=== PATIENT | female | born 1995 | race Caucasian/White ===

== ENCOUNTER 2018-11-06 16:58 | Outpatient (CLI) | payer OTHER ==
[~2018-11-06] VITALS: Ht 162.6 cm; Wt 74.6 kg
[2018-11-06 17:30] VITALS: BP 135/89
[2018-11-06] MEDS ORDERED: PRENTAB9 PO (18:22)
--- NOTE | 2018-11-06 18:44 | IPNPDOC ---
Text Note Date of Service The patient was seen on 11/06/18. NOTE 23 yo at apparently 40+3 weeks gestation (patient hasn't received any care at [facility] and no records are available) presents to L&D with the complaint of intermittent contractions, back pain, and pelvic pressure. She denies any vaginal bleeding or leakage of fluid. She endorses excellent movement. 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 She has been receiving care in [place]. She has been unable to get an appointment on [facility] yet. She reports her is uncomplicated. Chaperoned by SAIRA Stokess - VSS, afebrile, normotensive, non tachycardic General - AAOX3, sitting up in bed, NAD Abdomen - Gravid uterus appropriate size for gestational age. No fundal tenderness. Cervix - 1/thick/high, posterior FHR tracing - Moderate variability, +accels, no decels. Reactive NST. Sporadic contractions on toco. Patient not in active labor. Reassuring status. Benign exam. Recommended she call the [facility] at [facility] on Wednesday to make an appointment. If no appointments are available, I will see her on Wednesday and arrange an IOL. We reviewed discharge precautions. All patient questions answered. DO JEFF Harris Fishbone, I+O VSSasha, I+O Vital Signs Date Time Temp Pulse Resp B/P (MAP) Pulse Ox O2 Delivery O2 Flow Rate FiO2 11/06/18 17:30 98.2 104 18 135/89 (104) KIAN MAY DO Nov 06, 2018 18:44
== END 2018-11-06 18:45 | disposition home or self-care (01) ==
LOC: M LDO 16:58
PROVIDERS: ATTEND Obstetrics & Gynecology
DX: O26.893 Other specified pregnancy related conditions, third trimester (principal); R10.30 Lower abdominal pain, unspecified; M54.5 Low back pain; O47.1 False labor at or after 37 completed weeks of gestation; Z3A.40 40 weeks gestation of pregnancy
CPT/HCPCS: 59025; G0378; G0463

== ENCOUNTER 2018-11-10 09:20 | Inpatient (IN) | payer OTHER ==
[2018-11-10] VITALS (37 sets, daily range): BP systolic 98–150; BP diastolic 53–86
[~2018-11-10] VITALS: Ht 162.6 cm; Wt 75.5 kg
[~2018-11-10 09:20] MED LIST: PRENTAB9 PO
[2018-11-10] MEDS ORDERED: LACTATED RINGER'S 1000 ML IV STA (10:29)
[2018-11-10] MEDS ORDERED: OXYTOCIN DRIP 30 UNITS in APPROPRIATE DILUENT 1 EA IV SCH ×2 (10:30→23:00)
--- NOTE | 2018-11-10 10:39 | HPEPDOC ---
Obstetrical History & Physical General Date of Admission Nov 10, 2018 at 10:27 History of Present Illness 23 y/o at 41+0 with increasing pain/ctx's since 0400. No LOF/VB. Uncompli cated per pt and notes review from prior practice in [place], just transferred to our care last week, not seen in the office yet. 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 Past Medical History Medical History denies Surgical History: Denies/None Family History Significant Family History: No pertinent family hx Social History Marital Status: Family situation: Spouse/partner home Psychosocial History: No pertinent psych hx * Smoker: non-smoker Alcohol: Denies Drugs: denies Abuse Violence Screening Have you been hit/kicked/slapp: No Have you been sexually assault: No Allergies Coded Allergies: No Known Allergies (Unverified , 11/06/18) Medications Scheduled Multivitamins/ ( 27-0.8 mg) 1 Tab Tab, 1 TAB PO DAILY Physical Examination Physical Examination GENERAL: Alert and oriented times three. ABDOMEN: Gravid and non-tender to touch. FETUS: Is vertex (VTX) by sterile vaginal examination (SVE), /-2/vtx well applied EXTREMITIES: No edema. Vital Signs/I&O Vital Signs Date Time Temp Pulse Resp B/P (MAP) Pulse Ox O2 Delivery O2 Flow Rate FiO2 11/10/18 09:36 97.0 88 18 120/78 (92) Laboratory Data Urine Culture: Escherichia (E.) Coli (treated) Pertinent Laboratoy Data Blood Type: AB+ RBC Antibody Screen: Negative HIV: Negative Hepatitis B: Negative Hepatitis C: Unknown Rapid Plasma Reagin: Nonreactive Rubella: Immune Chlamydia/Gonorrhea: Unknown Group B Streptococcus: Negative Quad Screen Test: Unknown Cystic Fibrosis: Unknown Anatomy Ultrasound Placenta Location: Anterior Normal Anatomy: Yes Placenta Previa: No Assessment Variability: Moderate Accelerations: Positive Decelerations: None Tocometer Contractions: Yes Frequency: regular Assessment/Plan Assessment 41+0 weeks, favorable cx, ctx's. Will augment. membranes swept at time of check. Reg diet for lunch, at 1400 RN will check and if not in active labor will start pitocin. Plan Admit and orient. Bridge Maintainer and consent. Group B Streptococcus (GBS) neg Labs and intravenous (IV) per unit protocol. Counseled on Pitocin and induction of labor (IOL). Lactated Ringers (LR): Bolus 1000 mL if gets an epidural, then at 125 mL/hr. Anticipate normal spontaneous delivery () C-S as appropriate. Urine GC/CT on admit (not in records) SESSIONS,GERARD Ray MD Nov 10, 2018 10:39
[2018-11-10 10:58] LABS: HEMATOCRIT 38.6 % (36.0-47.0); HEMOGLOBIN 13.2 g/dl (12.0-15.5); MEAN CORPUSCULAR HEMOGLOBIN 29.4 pg (27.0-33.0); MEAN CORPUSCULAR HGB CONC 34.2 g/dl (32.0-36.5); PLATELET COUNT, AUTOMATED 223 10^3/uL (150-450); RED BLOOD COUNT 4.49 10^6/uL (4.00-5.40); WHITE BLOOD COUNT 11.7 10^3/uL (4.0-10.0)
[2018-11-10] MEDS: LR 1,000 ML IV SCH ×2 (11:03→18:49)
[2018-11-10 13:18] LABS: CHLAMYDIA DNA AMPLIFICATION NEGATIVE (NEGATIVE); GC DNA AMPLIFICATION NEGATIVE (NEGATIVE)
[2018-11-10] MEDS ORDERED: FENTANYL 2MCG/ML ROPIVACAINE 0.2% IN 0.9% NACL 100ML IVBAG As Ordered ONE (13:43)
[2018-11-10] MEDS ORDERED: ePHEDrine SULFATE 25 MG/5 ML(5MG/ML) SYRINGE IV PRN (15:30)
[2018-11-10] MEDS ORDERED: FENTANYL/ROPIVACAINE/NACL BAG 100 ML EPIDURAL SCH (15:30)
[2018-11-10] MEDS ORDERED: ONDANSETRON 4MG/2ML VIAL (J2405) IV PRN (15:30)
[2018-11-10] MEDS ORDERED: EPIDURAL COMMENT XX SCH (15:30)
[2018-11-10] MEDS ORDERED: LACTATED RINGER'S 1000 ML IV PRN (15:30)
[2018-11-10] MEDS ORDERED: EPIDURAL/PCA KEYS XX PRN (15:30)
[2018-11-10] MEDS ORDERED: REFRIGERATOR IV KEYS XX PRN (15:30)
[2018-11-10] MEDS ORDERED: diphenhydrAMINE INJ 50MG/ML VIAL (J1200) IV PRN (15:30)
[2018-11-10] MEDS ORDERED: NALOXONE INJ 0.4 MG/1 ML VIAL (J2310) IV PRN (15:30)
[2018-11-10] MEDS ORDERED: ACETAMINOPHEN TAB 650MG DOSE (2X325MG) PO ONE (18:00)
--- NOTE | 2018-11-10 18:30 | IPNPDOC ---
Text Note Date of Service The patient was seen on 11/10/18. NOTE Now s/p epidural and feeling well, on 4 mu/min pitocin NST Cat 2 with a few nonrepetitive late decels but pos accels and mod kim throughout Cx 7/100/-1, SROM (clr) with check Doing well, active labor SBAR to Dr Horvath at 1930 Sessions VS,Sasha, I+O VSSasha I+O Laboratory Tests 11/10/18 10:46 Red Blood Count 4.49, Mean Corpuscular Volume 86.0, Mean Corpuscular Hemoglobin 29.4, Mean Corpuscular Hemoglobin Concent 34.2, Red Cell Distribution Width 13.1 Vital Signs Date Time Temp Pulse Resp B/P (MAP) Pulse Ox O2 Delivery O2 Flow Rate FiO2 11/10/18 15:58 77 18 126/66 (86) 11/10/18 15:51 97.9 SESSIONS,GERARD Ray MD Nov 10, 2018 18:30
[2018-11-10] MEDS ORDERED: IBUPROFEN 800 MG TAB As Ordered ONE (22:40)
[2018-11-10] MEDS ORDERED: DIBUCAINE 1% OINTMENT 30GM TOP PRN (23:00)
[2018-11-10] MEDS ORDERED: RHOGAM 300 MCG (1500 IU) INJ (J2790) IM SCH (23:00)
[2018-11-10] MEDS ORDERED: DOCUSATE SODIUM 100 MG CAP PO PRN (23:00)
[2018-11-10] MEDS ORDERED: MEASLES,MUMPS,RUBELLA VACCINE INJ (MMR-II) (90707) SC SCH (23:00)
[2018-11-10] MEDS: IBUPROFEN 800 MG TAB PO PRN (23:13)
--- NOTE | 2018-11-10 23:19 | DNPDOC ---
[facility] Delivery Note Delivery Note DATE OF DELIVERY: 10 November 2018 PREDELIVERY DIAGNOSIS: 41w0d gestation and labor. POST DELIVERY DIAGNOSIS: Delivered. PROCEDURE: Spontaneous vaginal delivery PAID INTERNSHIP: Dr. Claudia Horvath MD ANESTHESIA: epidural ESTIMATED BLOOD LOSS: 300 mL. FINDINGS: 7 pound 11 ounce (3480g) female infant, Score 9/9 DELIVERY SUMMARY: Selena is a 23yo [id number] s/p uncomplicated at 41w0d after presenting in latent labor and having pitocin augmentation, delivering at 21:21 on 11/10/18. She received an epidural and progressed to C/C/0, began pushing very effectively and head delivered OA, restituted BERYL. Left anterior shoulder delivered followed by posterior shoulder and corpus. Infant immediately vigorous with spontaneous cry, placed on maternal abdomen, apgars 9/9. Nose and mouth suctioned with bulb suction. After approx 2 minutes, cord was clamped x2 and cut by FOB. With uterine massage and traction on the cord, placenta delivered spontaneously and intact with 3 vessel centrally inserted cord. IV pitocin given per protocol and bimanual massage performed, uterus then firm at u-2cm. Inspection of perineum and vagina revealed a left sidewall laceration and left labial laceration that lead into a 2mll. These were repaired with 3-0 vicryl in routine fashion with excellent cosmesis. However, there was continued oozing with edema of the tissue and each new suture would cause further bleeding, so a lap sponge was left in the vagina for compression and will be removed after approximately an hour. All counts correct (to include [address]). Mom and infant were doing well when I left the room. MD Yuliet Lewis Katrina D MD Nov 10, 2018 23:05
--- NOTE | 2018-11-10 23:26 | IPNPDOC ---
Text Note Date of Service The patient was seen on 11/10/18. NOTE Lap sponge removed from the vagina. Tissue is edematous and still friable but no brisk bleeding. Ice diaper in place should help swelling. Will place allen and keep in overnight. Will continue to closely observe. All counts correct. Claudia Horvath MD VS,Sasha, I+O VS, Sasha I+O Laboratory Tests 11/10/18 10:46 Red Blood Count 4.49, Mean Corpuscular Volume 86.0, Mean Corpuscular Hemoglobin 29.4, Mean Corpuscular Hemoglobin Concent 34.2, Red Cell Distribution Width 13.1 Vital Signs Date Time Temp Pulse Resp B/P (MAP) Pulse Ox O2 Delivery O2 Flow Rate FiO2 11/10/18 19:32 98.8 85 18 110/56 (74) Claudia Horvath MD Nov 10, 2018 23:26
[2018-11-11 01:41] VITALS: BP 128/85
[2018-11-11] MEDS: LR 1,000 ML IV SCH (02:29)
[2018-11-11] MEDS: ACETAMINOPHEN 500 MG TAB PO PRN ×3 (06:04→20:55)
[2018-11-11 06:11] VITALS: BP 120/73
--- NOTE | 2018-11-11 07:50 | IPNPDOC ---
Progress Note Date of Service: Nov 11, 2018 Day#: 1 Progress Note PPD 1 SUBJECT: Selena is a 23yo [id number] s/p uncomplicated at 41w0d after presenting in latent labor, delivering at 21:21 on 11/10/18. She has not yet ambulated, has allen catheter draining clear yellow urine (allen was left in place secondary to labial edema after extensive repair of left sidewall laceration and a left labial laceration that went into a 2mll). When I woke her up, she endorsed uterine cramping. Lochia has been appropriate. Breast feeding without issue. No f/c/n/v/CP/SOB. OBJECTIVE: VITAL SIGNS: Within normal limits, afebrile. Alert and oriented times three. Abdomen: Fundus firm at U-2. Soft, appropriately TTP without rebound/guarding. Extremities: no edema of BLE ASSESSMENT: Selena is a 23yo [id number] s/p uncomplicated at 41w0d after presenting in latent labor and having pitocin augmentation, delivering at 21:21 on 11/10/18, doing well on day 1. Vitals within normal limits, afebrile, hemodynamically stable with no evidence of infection. PLAN: 1. routine care 2. Tylenol and Motrin for pain. 3. Encourage breast feeding and ambulation. 4. keep allen catheter in until 1800 tonight with due to void 6hr after 5. regular diet 6. possible discharge tomorrow if meeting all milestones Dr. Claudia Horvath MD VS, I&O, 24H, [facility] Vital Signs/I&O Vital Signs Date Time Temp Pulse Resp B/P (MAP) Pulse Ox O2 Delivery O2 Flow Rate FiO2 11/11/18 06:11 97.8 94 18 120/73 (89) I&O- Last 24 Hours up to 6 AM 11/11/18 06:00 Intake Total 3213 ml Output Total 1250 ml Balance 1963 ml Laboratory Data 24H LABS Laboratory Tests 2 11/10/18 10:46: Nucleated Red Blood Cells % (auto) 0.0, Chlamydia trachomatis DNA (DERICK) NEGATIVE, Neisseria gonorrhoeae DNA (DERICK) NEGATIVE 11/10/18 11:15: Serology Scanned Report Hepatitis B Testing CBC/BMP Laboratory Tests 11/10/18 10:46 Red Blood Count 4.49, Mean Corpuscular Volume 86.0, Mean Corpuscular Hemoglobin 29.4, Mean Corpuscular Hemoglobin Concent 34.2, Red Cell Distribution Width 13.1 Claudia Horvath MD Nov 11, 2018 07:50
[2018-11-11] MEDS: IBUPROFEN 800 MG TAB PO PRN ×2 (08:56→17:03)
[2018-11-11] MEDS: PRENATAL VITAMINS CHEWABLE TABLET PO SCH (08:57)
[2018-11-11 18:00] VITALS: BP 120/69
[2018-11-12] MEDS: IBUPROFEN 800 MG TAB PO PRN (03:47)
[2018-11-12 06:00] VITALS: BP 100/57
--- NOTE | 2018-11-12 07:59 | DS.PDOC ---
Discharge Summary General Date of Admission Nov 10, 2018 at 10:27 Date of Discharge Nov 12, 2018 Discharge Summary HOSPITAL COURSE: Ms. Ibarra is a 23 yo G1 now P1 who underwent an uncomplicated on 10Nov2018 after being admitted for labor. She had a allen catheter left in place after delivery due to some edema but has had it removed and is urinating without issues. Her course has been unremarkable. On her day of discharge she met all appropriate discharge criteria. She was ambulating, voiding, tolerating a regular diet, and her pain was well controlled, and she had minimal lochia. DISCHARGE MEDICATIONS: Please see below. ALLERGIES: Please see below. PHYSICAL EXAMINATION ON DISCHARGE: VITAL SIGNS: Please see below. GENERAL: AAOX3, sitting up in bed, NAD ABDOMINAL EXAMINATION: Fundus firm at U-2. No fundal tenderness. EXTREMITIES: No edema PSYCHIATRIC EXAMINATION: Affect appropriate LABORATORY DATA: Please see below. ACTIVITY: Pelvic rest. DIET: Regular DISCHARGE PLAN: Discharge DISPOSITION: discharge to home on 12Nov2018. DISCHARGE INSTRUCTIONS: 1. Pelvic rest for 6 weeks. ITEMS TO FOLLOWUP ON ON OUTPATIENT: 1. appointment in 6-8 weeks. DISCHARGE CONDITION: Stable. TIME SPENT ON DISCHARGE: Greater than 20 minutes. Kian Killian DO Vital Signs/I&Os Vital Signs Date Time Temp Pulse Resp B/P (MAP) Pulse Ox O2 Delivery O2 Flow Rate FiO2 11/12/18 06:00 98.4 92 18 100/57 (71) I&O- Last 24 Hours up to 6 AM 11/12/18 06:00 Intake Total 0 ml Output Total 1600 ml Balance -1600 ml Discharge Medications Scheduled Multivitamins/ ( 27-0.8 mg) 1 Tab Tab, 1 TAB PO DAILY, (Reported) Allergies Coded Allergies: No Known Allergies (Unverified , 11/06/18) KIAN KILLIAN DO Nov 12, 2018 07:59
[2018-11-12] MEDS: PRENATAL VITAMINS CHEWABLE TABLET PO SCH (08:48)
[2018-11-12] MEDS ORDERED: ADACEL/BOOSTRIX VACCINE (DIPHTH/PERTUSS/ACELL/TETANUS)0.5ML SYR (90715) IM ONE (09:00)
[2018-11-12] MEDS ORDERED: COLA100C5 PO (11:21)
[2018-11-12] MEDS ORDERED: MAPA500T2 PO (11:21)
[2018-11-12] MEDS ORDERED: DIBU1OIN TOP (11:21)
[2018-11-12] MEDS ORDERED: IBUP-1114 PO (11:21)
== END 2018-11-12 12:30 | disposition home or self-care (01) | DRG 807 ==
LOC: M LDO 09:20 → M LDI 10:27 → M OBS 11-11 01:39
PROVIDERS: ADMIT Obstetrics & Gynecology; ATTEND Obstetrics & Gynecology
PROC: 10E0XZZ Delivery of Products of Conception, External Approach (ICD-10-PCS; principal; 2018-11-10)
PROC: 0KQM0ZZ Repair Perineum Muscle, Open Approach (ICD-10-PCS; 2018-11-10)
DX: O48.0 Post-term pregnancy (principal); Z37.0 Single live birth; Z3A.41 41 weeks gestation of pregnancy; O70.1 Second degree perineal laceration during delivery